=== PATIENT | female | born 1980 | race Caucasian/White ===

== ENCOUNTER → 2017-09-12 | Day surgery (SDC) | payer OTHER ==
--- NOTE | 2017-09-10 12:34 | History & Physical Pre-Op ---
General Information and HPI History of Present Illness: Al is a 37-year-old female with a long-standing worsening complaint of a painful bunion right foot. Patient has undergone an extended course of conservative care, including shoes and activity modification, rest, immobilization course of NSAIDs. None of this is revealed that her any significant relief. The patient presents today for preoperative surgical consultation. The patient was referred to our office from Stan Dozier DPM. Allergies/Medications Allergies: Coded Allergies: NO KNOWN ALLERGIES (11/29/13) Home Med list Acetaminophen/Hydrocodone Bi ([place] 325 MG-5 MG) 1 TAB TAB 1 TAB PO Q6H PRN PAIN Amoxicillin 500 MG CAPSULE 1 CAP PO Q6 LT BOTTOM TOOTH INFECTION (Reported) Past History Surgical History Pertinent Surgical History: Review of Systems Review of Systems: Unremarkable except for that noted in history of present illness Exam & Diagnostic Data Physical Exam: Lungs clear bilaterally. Heart sounds rate and rhythm regular. Lower extremity physical exam demonstrates intact pedal pulses bilaterally. The dorsalis pedis and posterior tibial arteries are palpable bilaterally. Patient without any sensory or motor deficits. Deep tendon reflexes grossly intact. Patient not has any pain with palpation range of motion to the right first metatarsophalangeal joint. Hallux noted to be tracking tracked down. No crepitus identified range of motion. First ray excursion within normal limits. Assessment/Plan Assessment/Plan: Painful bunion right foot. A lengthy discussion reviewing both surgical and conservative options were sent with patient at bedside and the patient elected to go forward with surgery despite the risks. As Ranked By This Provider Problem List: 1. Acquired hallux valgus of right foot Attending MD Review Statement Attending Statement Attending MD Statement: examined this patient
[~2017-09-12] VITALS: Ht 160 cm; Wt 54.4 kg
[~2017-09-12] MED LIST: AMOXICILLIN500 MG PO; NORCO 325 MG-51 TAB PO
--- NOTE | 2017-09-12 10:12 | Operative Report ---
Operative/Inv Procedure Report Surgery Date: 09/12/17 Name of Procedure: 1 bunionectomy right foot Pre-Operative Diagnosis: 1 hallux valgus right foot Post-Operative Diagnosis: The same Estimated Blood Loss: scant Surgeon/Overhead Foreman: Mervin Jaimes DPM Anesthesia: moderate sedation, block Operative/Procedure Note Note: After obtaining informed consent the patient was brought to the operating room and placed on the operating table in the supine position. The patient was then securely fastened to the operating table utilizing a safety belt. After administration of IV sedation, 10 cc of 0.5% Marcaine plain was infiltrated about the patient's right ankle. 2 g of Ancef were delivered intravenously times. A well-padded ankle tourniquet was placed about the patient's right lower extremity. The right foot and ankle were then scrubbed, prepped and draped in the usual aseptic manner. Attention was directed to the dorsal aspect of the right foot, where a 6 cm linear incision was made just medial to the course of the extensor hallucis longus tendon. The skin was incised with 15 blade and carried down to the septations tissues. All vital neurovascular structures were identified and protected. An inverted L capsulotomy was performed exposing the medial eminence. This was then removed with a sagittal bone saw. An interspace release was then performed with sectioning of these fibular suspensory ligament and the oblique head of the abductor hallucis tendon. The extensor hallucis brevis tendon was identified and tenotomized. A Chevron type osteotomy was then performed and the capital fragment was transposed laterally. It was then impacted upon the metatarsal shaft. He was temporarily stabilized with a 4 5 K wire. Next, utilizing standard AO fixation techniques to 2.3 mm fully threaded cortical screws were placed across the osteotomy site. The temporary K wire was then removed. The proximal medial shelf was resolved and revised with a sagittal saw. The wound was then irrigated with copious amounts of normal sterile saline. The capsular structures were reapproximated with 3-0 Vicryl and the septations tissues reapproximate 4-0 Vicryl. The skin edges were reapproximated with 4-0 Monocryl. The incision was then dressed with Steri-Strips, Xeroform, 4 x 4's, Kerlix and an Al wrap. The patient was noted to tolerated both procedure and anesthesia well and the patient was transported from the operating room to recovery with vital signs stable and vascular status intact to all digits right foot.
== END ==
LOC: STS 01:58
DX: M20.11 Hallux valgus (acquired), right foot (principal)
CPT/HCPCS: 81025; 88304; C1713; J0690; J1100; J1885; J2001; J2250